=== PATIENT | female | born 1985 | race Caucasian/White ===

== ENCOUNTER 2019-03-02 10:00 | Emergency (ER) | payer OTHER ==
[2019-03-02 10:18] VITALS: BP 110/65; PULSE 70; TEMP 98.6; BMI 25.0
--- NOTE | 2019-03-02 10:28 | PDOC ---
History of Present Illness - General Chief Complaint: Injury Stated Complaint: LEFT KNEE INJURY Time Seen by Provider: 03/02/19 10:02 - History of Present Illness Initial Comments: 03/02/19 10:23 33 yo F PMH right ACL, MCL, and meniscus injury s/p surgery 4 years ago, presenting with L knee pain. Patient states that she was walking into work this morning and slipped on some water, with acute pain and a "popping" sensation. Specifically denies LOC or fall. States that her pain is worst on the lateral and posterior of her knee. Describes her pain as similar in quality to her previous R knee injury, albeit with less intensity. Reports taking 1000mg of Advil due to confusing dosage with acetaminophen. Able to walk immediately after injury and currently in the ED, albeit with pain. Denies loss of stability. Past History - Past Medical History Allergies/Adverse Reactions: Allergies Allergy/AdvReac Type Severity Reaction Status Date / Time No Known Allergies Allergy Verified 03/02/19 10:10 Home Medications: Ambulatory Orders Ibuprofen [Advil -] 1,000 mg PO ASDIR 03/02/19 COPD: No Psychiatric Problems: Yes (anxiety) Other medical history: h/o fainting spells - Psycho Social/Smoking Cessation Hx Smoking History: Current every day smoker Have you smoked in the past 12 months: Yes Number of Cigarettes Smoked Daily: 3 Information on smoking cessation initiated: Yes Hx Alcohol Use: No Review of Systems - Review of Systems Comments:: 03/02/19 10:29 GENERAL/CONSTITUTIONAL: No fever or chills. No weakness. HEAD, EYES, EARS, NOSE AND THROAT: No change in vision. No ear pain or discharge. No sore throat. CARDIOVASCULAR: No chest pain or shortness of breath. RESPIRATORY: No cough, wheezing, or hemoptysis. GASTROINTESTINAL: No nausea, vomiting, diarrhea or constipation. GENITOURINARY: No dysuria, frequency, or change in urination. MUSCULOSKELETAL: Mild L knee joint swelling with moderate pain. No neck or back pain. SKIN: No rash NEUROLOGIC: No headache, vertigo, loss of consciousness, or change in strength/ sensation. ENDOCRINE: No increased thirst. No abnormal weight change. HEMATOLOGIC/LYMPHATIC: No anemia, easy bleeding, or history of blood clots. ALLERGIC/IMMUNOLOGIC: No hives or skin allergy *Physical Exam - Vital Signs Last Vital Signs Temp Pulse Resp BP Pulse Ox 98.6 F 70 18 110/65 97 03/02/19 10:00 03/02/19 10:00 03/02/19 10:00 03/02/19 10:00 03/02/19 10:00 - Physical Exam 03/02/19 10:29 Gen: well-developed, well-nourished, NAD Neuro: AAOX4, CN II-XII intact, FTN intact, EOMI, PERRLA, 5/5 strength, SILT HEENT: atraumatic, normocephalic, dry mucous membranes Neck: trachea midline, supple CV: regular rate, regular rhythm, no murmurs, rubs, or gallops Pulm: CTA b/l, no wheezing Abd: soft, non-distended, non-tender MSK: full ROM, intact pulses. Mild L knee joint effusion w/o ecchymosis, ttp along lateral and posterior knee Extr: no edema, no deformities Skin: warm, dry Medical Decision Making - Medical Decision Making 03/02/19 10:30 Concern for potential ligament damage. Possible injuries include ACL, MCL, LCL, and meniscal damage. - Patient already taken 1000mg Advil - does not meet [place] criteria, does not require X-ray - recommend RICE therapy - outpatient orthopedic followup, likely MRI Discharge - Discharge Information Problems reviewed: Yes Clinical Impression/Diagnosis: Left knee pain Condition: Stable - Follow up/Referral Referrals: Emi Devi MD [Primary Care Provider] - Bro Toussaint MD [Staff Physician] - - Patient Discharge Instructions Patient Printed Discharge Instructions: How To Perform RICE (Rest, Ice, Compress, Elevate), DI for Knee Pain Additional Instructions: You were seen with left knee pain after slipping. Please use rest, ice, compression, and elevation, particularly in the first 24 hours. Take ibuprofen as needed for pain. Follow up with your primary care doctor within one week. We have referred you to an orthopedist, please call to make an appointment as soon as possible. Return to the ED if you develop worsening symptoms. - Post Discharge Activity
--- NOTE | 2019-03-02 10:38 | PDOC ---
Attending Attestation - Resident Resident Name: Robert Jansen - ED Attending Attestation I have performed the following: I have examined & evaluated the patient, The case was reviewed & discussed with the resident, I agree w/resident's findings & plan, Exceptions are as noted - HPI HPI: 03/02/19 10:37 33 yo F PMH right ACL, MCL, and meniscus injury s/p surgery 4 years ago, presenting with L knee pain. Patient states that she slipped on water this morning, extended her knee with acute pain in the lateral aspect of her knee. 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 Pt took motrin 1000mg and proceeded to the ED. She has been able to walk on the knee since the injury. Denies other injuries. She requests MRI for her knee. She has other thomas been in her USOGH, Denies fevers, chills, headache, dizziness , focal weakness or numbness, chest pain, shortness of breath, abdominal pain, nausea, vomiting, diarrhea, urinary symptoms, lower extremity edema. - Physicial Exam PE: 03/02/19 10:56 GENERAL: Awake, alert, and fully oriented, in no acute distress EYES: PERRLA, EOMI, sclera anicteric, conjunctiva clear ENT: Oropharynx clear without exudates. Moist mucosa NECK: Normal ROM, supple, no lymphadenopathy, JVD, or masses LUNGS: Breath sounds equal, clear to auscultation bilaterally. No wheezes, and no crackles HEART: Regular rate and rhythm, normal S1 and S2, no murmurs, rubs or gallops ABDOMEN: Soft, nontender, normoactive bowel sounds. No guarding, no rebound. No masses EXTREMITIES: L knee with mild edema, +ttp to LCL and pain with varus stress. No laxity, negative lachmans, estrella tests. No patellar or fibular ttp. FROM in the knee passively and against resistance. Able to take more than 4 steps on knee. Distal RLE with 2+ TP and DP pulses, normal strength and sensation throughout. NEUROLOGICAL: Normal speech, cranial nerves intact, equal strength and sensation b/l SKIN: Warm, Dry, normal turgor, no rashes or lesions noted. - Medical Decision Making 12/10/19 11:01 33yo F presents to the ED requesting MRI for L knee after she slipped and felt a pop in her knee On exam, mild edema and pain with varus stress concerning for possible ligamentous injury. FIDELIA BOGGS. Discussed with pt that no urgent indication for MRI in ED but offered XR which she declined Her pain was under control with home dose of motrin Discussed proper dosing with pt for motrin, placed in knee immoblizer for comfort Pt referred to Dr. Toussaint for outpt f/u All questions answered I discussed the physical exam findings, ancillary test results and final diagnoses with the patient. I answered all of the patient's questions. The patient was satisfied with the care received and felt comfortable with the discharge plan and treatment plan. The patient will call their primary care physician within 24 hours to arrange follow-up and will return to the Emergency Department with any new, persistent or worsening symptoms.
== END 2019-03-02 10:50 | disposition home or self-care (01) ==
LOC: FER 10:00
DX: M25.561 Pain in right knee (principal); F41.9 Anxiety disorder, unspecified; F17.210 Nicotine dependence, cigarettes, uncomplicated; W01.0XXA Fall on same level from slipping, tripping and stumbling without subsequent striking against object, initial encounter; Y93.89 Activity, other specified; Y92.89 Other specified places as the place of occurrence of the external cause; Y99.0 Civilian activity done for income or pay
CPT/HCPCS: 99283-25